=== PATIENT | female | born 1975 | race Caucasian/White ===

== ENCOUNTER 2016-05-20 11:53 | Emergency (ER) | payer MEDICAID ==
[~2016-05-20] VITALS: Ht 170.2 cm; Wt 90.7 kg
[~2016-05-20 11:53] MED LIST: GABA-531 PO; LEVO500T20 PO; METR500T PO; OXYC20TA55 PO; SOM350 PO
[2016-05-20 12:04] VITALS: BP_SYST 157
[2016-05-20] MEDS ORDERED: IBUPROFEN 800 MG TABLET PO ONE (13:00)
== END 2016-05-20 13:10 | disposition home or self-care (01) ==
LOC: SED 11:53
DX: M25.561 Pain in right knee (principal); J45.909 Unspecified asthma, uncomplicated; E11.9 Type 2 diabetes mellitus without complications
CPT/HCPCS: 73564; 99284

== ENCOUNTER 2017-03-24 21:54 | Emergency (ER) | payer MEDICAID ==
[~2017-03-24] VITALS: Ht 167.6 cm; Wt 90.7 kg
[2017-03-24 22:00] VITALS: BP_SYST 149
[2017-03-24] MEDS ORDERED: CEPH-568 PO (22:12)
[2017-03-24] MEDS ORDERED: DOXYCYCLINE HYCLATE 100 MG CAPSULE PO ONE (23:45)
[2017-03-24] MEDS ORDERED: ACETAMINOPHEN 500 MG TABLET PO ONE (23:45)
[2017-03-24] MEDS ORDERED: IBUPROFEN 600 MG TABLET PO ONE (23:45)
[2017-03-25] MEDS ORDERED: DOXYCYCLINE HYCLATE 100 MG CAPSULE ONE (00:27)
[2017-03-25 00:32] VITALS: BP_SYST 142
== END 2017-03-25 00:32 | disposition home or self-care (01) ==
LOC: SED 21:54
DX: L03.116 Cellulitis of left lower limb (principal); J45.909 Unspecified asthma, uncomplicated; E11.9 Type 2 diabetes mellitus without complications; Z96.659 Presence of unspecified artificial knee joint
CPT/HCPCS: 73590-TC; 81025; 93971; 99284

== ENCOUNTER 2020-04-21 21:05 | Emergency (ER) | payer MEDICAID, SELFPAY ==
[~2020-04-21] VITALS: Ht 167.6 cm; Wt 89.8 kg
[~2020-04-21 21:05] MED LIST changes: +CEPH-568 PO; -GABA-531 PO; -LEVO500T20 PO; -METR500T PO; -OXYC20TA55 PO; -SOM350 PO
[2020-04-21 21:34] VITALS: BP_SYST 155
--- NOTE | 2020-04-21 23:07 | NUR ---
Patient to ER bed 6 to gown for evaluation. Side rails up. Report given to self. Received patient to Er w/ c/o wounds to right 2nd and third digit of foot w/ drainage and seepage. Patient also noted to have similar rash/wound to right nare. patient also states has been having swelling to left ankle (non-traumatic). Admits to using meth today. Positioned for comfort and safety w/ bed to low position sr up. continue to monitor.
[2020-04-22] MEDS ORDERED: NACL 0.9% 1,000 ML IV ONE (00:30)
[2020-04-22] MEDS ORDERED: METOCLOPRAMIDE HCL 10 MG/2 ML VIAL IVP ONE (00:30)
--- NOTE | 2020-04-22 01:19 | NUR ---
# 20 gauge angiocath placed to left wrist. Use of asceptic technique. Opsite placed over site. Blood return noted. Blood for lab drawn from site. Flushed with 10 cc of normal saline. No evidence of infiltration noted. Patient tolerated well. patient medicated as ordered. Will observe for any adverse reaction.
[2020-04-22 01:49] LABS: BASOPHILS # (AUTO) 0.3 K/uL (0.0-0.2); BASOPHILS % (AUTO) 2.2 % (0.0-2.0); EOSINOPHILS # (AUTO) 0.1 K/uL (0.0-0.4); EOSINOPHILS % (AUTO) 1.1 % (0.0-4.0); HEMATOCRIT 35.4 % (36-48); HEMOGLOBIN 11.5 g/dL (12.0-16.0); LYMPHOCYTES # (AUTO) 2.9 K/uL (1.0-5.5); LYMPHOCYTES % (AUTO) 23.5 % (20.5-51.5); MEAN CORPUSCULAR HEMOGLOBIN 29 pg (27-31); MEAN CORPUSCULAR HGB CONC 33 % (32-36); MEAN CORPUSCULAR VOLUME 89 fL (79.0-98.0); MONOCYTES # (AUTO) 0.8 K/uL (0.0-1.0); MONOCYTES % (AUTO) 6.1 % (1.7-9.3); NEUTROPHILS # (AUTO) 8.4 K/uL (1.8-7.7); NEUTROPHILS % (AUTO) 67.1 % (40.0-70.0); PLATELET COUNT (AUTO) 376 K/uL (130-430); RED BLOOD CELL COUNT(AUTO) 3.97 MIL/uL (4.2-6.2); RED CELL DISTRIBUTION WIDTH 16.2 % (9.0-15.0); WHITE BLOOD COUNT (AUTO) 12.5 K/uL (4.8-10.8)
[2020-04-22 01:51] LABS: BILIRUBIN,URINE NEGATIVE (NEGATIVE); CLARITY/URINE CLEAR (CLEAR); COLOR,URINE YELLOW (YELLOW); GLUCOSE,URINE NEGATIVE (NEGATIVE); KETONES,URINE NEGATIVE (NEGATIVE); LEUKOCYTE ESTERASE ,URINE NEGATIVE (NEGATIVE); NITRITE, URINE NEGATIVE (NEGATIVE); PH,URINE 5.5 (5.0-8.0); PROTEIN URINE NEGATIVE (NEGATIVE); UROBILINOGEN,URINE 0.2 (0.2-1.0)
[2020-04-22 02:06] LABS: BLOOD, URINE TRACE (NEGATIVE)
[2020-04-22 02:08] LABS: BARBITURATE, URINE NEGATIVE (NEG <=200); BENZODIAZEPINE, URINE NEGATIVE (NEG <=150); CANNABINOID, URINE NEGATIVE (NEG <=50); COCAINE, URINE NEGATIVE (NEG <=150); METHAMPHETAMINES SCREEN,URINE POSITIVE (NEG <=500); OPIATE, URINE NEGATIVE (NEG <=100); PHENCYCLIDINE SCREEN,URINE NEGATIVE (NEG <=25); UR TRICYCLIC ANTIDEPRESSANTS NEGATIVE (NEG <=300); URINE AMPHETAMINE POSITIVE (NEG <=500); URINE METHADONE NEGATIVE (NEG <=200); URINE OXYCODONE SCREEN NEGATIVE (NEG <=100); URINE PROPOXYPHENE SCREEN NEGATIVE (NEG <=300)
[2020-04-22 02:14] LABS: ALANINE AMINOTRANSFERASE 21 U/L (12-78); ALBUMIN 2.9 g/dL (3.4-4.8); ANION GAP 14 (5-15); ASPARTATE AMINOTRANSFERASE 23 U/L (10-37); CALCIUM 8.8 mg/dL (8.4-11.0); CHLORIDE 100 mmol/L (98-107); CREATININE 0.79 mg/dL (0.55-1.30); GLUCOSE 118 mg/dL (70-99); HCG,QUANTITATIVE 0 mIU/ML (0-6); POTASSIUM 4.2 mmol/L (3.5-5.1); SODIUM SERUM 136 mmol/L (136-145); TOTAL BILIRUBIN 0.3 mg/dL (0.0-1.0)
[2020-04-22 02:16] LABS: GFR AFRICAN AMERICAN 101 mL/min (>90)
[2020-04-22 02:17] LABS: ALCOHOL, BLOOD < 3 mg/dL (<10)
[2020-04-22 02:26] LABS: UREA NITROGEN, BLOOD 11 mg/dL (8-21)
[2020-04-22 02:50] LABS: BACTERIA,URINE FEW /HPF (None Seen); WBC,URINE 0-3 /HPF (0-3)
--- NOTE | 2020-04-22 03:34 | NUR ---
Patient resting quietly. No acute distress noted. Vital signs within normal range. continue to monitor level of comfort. bed to low position sr up.
--- NOTE | 2020-04-22 04:20 | NUR ---
Right foot soaked in Sterile water and minimal amt of betadine for which afterwards will irrigate wounds to right toes. informed patient of procedure, verbalized understanding and reason for treatment.
[2020-04-22] MEDS ORDERED: BACITRACIN 1 GM OINT TP ONE (05:14)
[2020-04-22] MEDS ORDERED: CEPH-568 PO (05:21)
[2020-04-22 05:44] VITALS: BP_SYST 151
--- NOTE | 2020-04-22 05:44 | NUR ---
Patient given written and verbal discharge instructions and verbalizes understanding. ER MD discussed with patient the results and treatment provided. Patient in stable condition. ID arm band removed. IV catheter removed intact and dressing applied, no active bleeding. Rx of Keflex given. Patient educated on pain management and to follow up with PMD. Pain Scale 3/10. Opportunity for questions provided and answered. Medication side effect fact sheet provided.
== END 2020-04-22 05:44 | disposition home or self-care (01) ==
LOC: SED 21:05
DX: S90.414A Abrasion, right lesser toe(s), initial encounter (principal); R21 Rash and other nonspecific skin eruption; J45.909 Unspecified asthma, uncomplicated; E11.9 Type 2 diabetes mellitus without complications; F15.90 Other stimulant use, unspecified, uncomplicated; Z20.822 Contact with and (suspected) exposure to COVID-19; X58.XXXA Exposure to other specified factors, initial encounter; Y93.89 Activity, other specified; Y92.89 Other specified places as the place of occurrence of the external cause; Y99.8 Other external cause status
CPT/HCPCS: 36415; 73630; 80053; 80307; 81000; 82550; 84484; 84702; 85025; 87426; 93005; 96361; 96374; 99285; G0482; J2765; J7030